=== PATIENT | female | born 1990 | race African-American/Black ===

== ENCOUNTER 2023-03-02 16:40 | Emergency (ER) | payer SELFPAY ==
[~2023-03-02] VITALS: Ht 160 cm; Wt 66.0 kg
[2023-03-02 17:05] VITALS: BP 137/89; PULSE 103; RESP 18; TEMP 98.6; O2SAT 96
[2023-03-02] MEDS ORDERED: CYCL5TAB MT (19:37)
[2023-03-02] MEDS ORDERED: LIDO700A15 TP (19:37)
[2023-03-02] MEDS ORDERED: NAPR375T5 MT (19:37)
== END 2023-03-02 19:56 | disposition home or self-care (01) ==
LOC: ER 16:40
DX: S39.012A Strain of muscle, fascia and tendon of lower back, initial encounter (principal); X58.XXXA Exposure to other specified factors, initial encounter; Y93.89 Activity, other specified; Y92.89 Other specified places as the place of occurrence of the external cause; Y99.8 Other external cause status
CPT/HCPCS: 99283